=== PATIENT | female | born 1975 | race Caucasian/White ===

== ENCOUNTER 2017-04-05 18:08 | Emergency (ER) | payer OTHER ==
--- NOTE | ~2017-04-05 | CR72 ---
[facility] A Service of [facility] RADIOLOGY TEXT RESULTS PATIENT: CHERYL HERNANDEZ LOCATION: [facility] : 73 UNIT #: [id number] AGE: [address]: Ravi Fuchs MD SEX: F ORDER DR: [id number] [facility] [address] [place], [place] [address] [id number] MR#: [id number] Acc #: [id number] NAME: CHERYL HERNANDEZ : 1975 SEX: F STUDY DATE/TIME: 04/05/2017 21:14 UNIT: [facility] ROOM: STUDY DESCRIPTION: CR Chest Single View Portable Attending Physician: Ravi Fuchs M.D. Ordering Physician: Ravi Fuchs M.D. Primary Care Physician: Primary Care Physician No MEDICAL IMAGING REPORT This report is preliminary unless electronic signature is present EXAM Portable chest HISTORY Shortness of air for 1 week. FINDINGS A single AP portable view of the chest shows both lungs to be clear. The heart is normal in size. The mediastinal contour is normal. No significant bone abnormalities are seen. IMPRESSION Normal portable chest. Dictated by... Raza Carter M.D. THIS IS AN ELECTRONICALLY VERIFIED REPORT Raza Carter M.D. at 04/06/2017 11:10 PM DFL/can TD: 04/06/2017 01:53 JOB #: [id number] MEDICAL IMAGING REPORT Page 1 of 1 COPY
--- NOTE | ~2017-04-05 | CT16 ---
[facility] A Service of [facility] RADIOLOGY TEXT RESULTS PATIENT: CHERYL HERNANDEZ LOCATION: [facility] : 73 UNIT #: [id number] AGE: [address]: Ravi Fuchs MD SEX: F ORDER DR: [id number] [place] [id number] [facility]. [place], [place] [address] [id number] MR#: [id number] Acc #: [id number] NAME: CHERYL HERNANDEZ : 1975 SEX: F STUDY DATE/TIME: 04/06/2017 0:04 UNIT: [facility] ROOM: STUDY DESCRIPTION: CT Angio Chest for PE Attending Physician: Ravi Fuchs M.D. Ordering Physician: Ravi Fuchs M.D. Primary Care Physician: Primary Care Physician No MEDICAL IMAGING REPORT This report is preliminary unless electronic signature is present EXAM CT chest with contrast, pulmonary arteriography protocol, 04/06/2017 HISTORY 41-year-old female in the ED complaining of 1-week history of shortness of air. Elevated D-dimer. TECHNIQUE CT examination of the chest with IV contrast using pulmonary arteriography protocol. 3-D CTA images of the pulmonary arteries were reformatted in multiple planes. This CT exam was performed with one or more of the following radiation dose reduction techniques: automatic exposure control, adjustment of mA and/or kV according to patient size, and iterative reconstruction. FINDINGS No pulmonary embolism is demonstrated. Normal-caliber thoracic aorta. Heart size is normal, there is no pericardial effusion. The lungs are clear, and there is no pleural effusion. No suspicious mass or adenopathy is seen within the chest. Limited images through the uppermost abdomen show focal inflammation along the inferior margin of the mid transverse colon having an appearance typical for epiploic appendagitis. This usually causes significant abdominal pain, and the patient reportedly does not currently complain of abdominal pain. IMPRESSION 1. Negative CT examination using pulmonary arteriography protocol. 2. Limited upper abdominal images showing an apparent focal inflammatory process along the margin of the mid transverse colon having a typical STS. [facility] A Service of [facility] RADIOLOGY TEXT RESULTS PATIENT: CHERYL HERNANDEZ LOCATION: [facility] : 73 UNIT #: [id number] AGE: [address]: Ravi Fuchs MD SEX: F ORDER DR: appearance for epiploic appendagitis. The patient reportedly denies abdominal pain. Upper abdomen images are otherwise negative. Dictated by... Bernard Cahn M.D. THIS IS AN ELECTRONICALLY VERIFIED REPORT Bernard Chan M.D. at 04/06/2017 6:02 AM YOANDY/enio TD: 04/06/2017 04:17 JOB #: [id number] MEDICAL IMAGING REPORT Page 1 of 1 COPY
--- NOTE | ~2017-04-05 | EKG ---
PATIENT: CHERYL HERNANDEZ UNIT #: [id number] Ventricular Rate: 76 BPM Atrial Rate: 76 BPM P-R Interval: 140 ms QRS Duration: 84 ms Q-T Interval: 388 ms QTC Calculation(Bezet): 436 ms P [place]: 26 degrees Calculated R [place]: -8 degrees Calculated T [place]: 60 degrees Diagnosis Line: Normal sinus rhythm Diagnosis Line: Nonspecific T wave abnormality Diagnosis Line: Abnormal ECG Diagnosis Line: No previous ECGs available Diagnosis Line: Confirmed by YOSHI LUKE MD ([id number]) on Diagnosis Line: 04/06/2017 10:07:47 PM INTERPRETING MD: DILIP
[2017-04-05 23:01] LABS: BASOPHIL% 0.5 % (0-2.5); EOSINOPHIL# 0.1 X10e3 (0-0.7); EOSINOPHIL% 1.7 % (0.0-7.0); HEMATOCRIT 42.2 % (35.0-45.0); HEMOGLOBIN 13.9 gm/dL (12.0-16.0); LYMPHOCYTE# 2.2 X10e3 (1.0-3.5); LYMPHOCYTE% 25.1 % (17.0-45.0); MEAN CELL VOLUME 91.9 FL (83-96); MEAN CORPUSCULAR HEMOGLOBIN 30.4 PG (28-34); MEAN CORPUSCULAR HGB CONC 33.1 g/dL (30-36); MEAN PLATELET VOLUME 7.8 FL (6.5-11.5); MONOCYTE# 0.4 X10e3 (0-1.0); MONOCYTE% 4.8 % (3.0-12.0); NEUTROPHIL% 67.9 % (40-75); PLATELET COUNT 201 X10e3 (140-420); RED BLOOD COUNT 4.59 X10e (3.90-5.30); WHITE BLOOD COUNT 8.8 X10e3 (4.0-10.5)
[2017-04-05 23:02] LABS: POC - CKMB <1.0 ng/mL (0.0-7.9); POC - TROPONIN <0.05 ng/mL (<=0.05)
[2017-04-05 23:05] LABS: DIFF IND NO
[2017-04-05 23:16] LABS: PARTIAL THROMBOPLASTIN TIME 23.8 SECONDS (23.5-31.3); PROTHROMBIN TIME (PATIENT) 10.1 SECONDS (9.6-11.5)
[2017-04-05 23:23] LABS: ALBUMIN SERUM 3.9 g/dL (3.5-5.0); BILIRUBIN, DIRECT 0.1 mg/dL (0.0-0.2); BILIRUBIN,INDIRECT 0.4 mg/dL (0.0-0.9); BILIRUBIN,TOTAL 0.5 mg/dL (0.2-2.0); BUN/CREATININE RATIO 11.11; CALCIUM SERUM 8.8 mg/dL (8.4-10.2); CREATININE SERUM 0.9 mg/dL (0.6-1.4); GLOM FILT RATE Estimated 78.9 mL/min (>60); POTASSIUM 3.9 mmol/L (3.5-5.1); PROTEIN TOTAL SERUM 7.8 g/dL (6.0-8.3)
== END 2017-04-06 01:49 | disposition home or self-care (01) ==
LOC: CED 18:08
PROVIDERS: Emergency Medicine
DX: R06.02 Shortness of breath (principal); Z90.49 Acquired absence of other specified parts of digestive tract; Z88.2 Allergy status to sulfonamides; Z88.1 Allergy status to other antibiotic agents
CPT/HCPCS: 36415; 71010; 71275; 80048; 80076; 82553; 84484; 84703; 85025; 85379; 85610; 85730; 93005; 99284; Q9967